=== PATIENT | female | born 1950 | race Asian ===

== ENCOUNTER 2017-08-24 13:51 | Outpatient (CLI) | payer MEDICARE, BC ==
[2017-08-24 15:05] LABS: Hematocrit 36.9 % (36.0-47.0); Mean Platelet Volume 8.4 fL (7.4-10.4); Red Blood Cell (RBC) Count 3.94 mill/uL (4.20-5.40); White Blood Cell (WBC) Count 10.4 thou/uL (4.8-10.8)
[2017-08-24 15:24] LABS: Anion Gap 13 mmol/L (10-20); BUN (Urea Nitrogen) 19 mg/dL (9.8-20.1); Calc. Creatinine Clearance 0 mL/min (70-130); Calcium 9.7 mg/dL (7.8-10.44); Carbon Dioxide 24 mmol/L (23-31); Chloride 102 mmol/L (98-107); Estimated GFR-MDRD 50
== END 2017-08-24 13:52 | disposition home or self-care (01) ==
LOC: LABBT 13:51
PROVIDERS: ATTEND Neurological Surgery
DX: Z01.818 Encounter for other preprocedural examination (principal); M54.16 Radiculopathy, lumbar region
CPT/HCPCS: 80048; 85027; 93005; 93010

== ENCOUNTER 2017-08-31 05:56 | Day surgery (SDC) | payer MEDICARE, BC ==
[2017-08-24 14:02] VITALS: BMI 28.3
[2017-08-31] MEDS ORDERED: CEFAZOLIN/Water 2 GM/20 ML SYRINGE ONE (06:12)
[2017-08-31] MEDS ORDERED: Sodium Chloride 0.9% 10 ML ONE (06:24)
[2017-08-31] MEDS ORDERED: Midazolam HCl 2 mg/2 ml Vial ONE (06:44)
[2017-08-31] MEDS ORDERED: Scopolamine 1.5 mg/72 hour Patch ONE (06:44)
[2017-08-31] MEDS ORDERED: Fentanyl 100 MCG/2 ML VIAL ONE ×3 (07:12→10:14)
[2017-08-31] MEDS ORDERED: Phenylephrine 10 MG/NS 250 ML 250 ML ONE (07:12)
[2017-08-31] MEDS ORDERED: Promethazine HCl 25 MG/ML VIAL ONE (07:12)
[2017-08-31] MEDS ORDERED: Ondansetron HCl/PF 4 MG/2 ML Vial IVP PRN (09:08)
[2017-08-31] MEDS ORDERED: Meperidine HCl/PF 25 MG/ML VIAL SLOW IVP PRN (09:08)
[2017-08-31] MEDS ORDERED: Morphine Sulfate 2 MG/ML SYRINGE SLOW IVP PRN (09:08)
[2017-08-31] MEDS ORDERED: HYDROmorphone 2 MG/ML VIAL SLOW IVP PRN (09:08)
[2017-08-31] MEDS ORDERED: Promethazine HCl 25 MG/ML VIAL SLOW IVP PRN (09:08)
--- NOTE | 2017-08-31 09:25 | OP ---
DATE OF PROCEDURE: 08/31/2017 SURGEON: Dawson Kraus M.D. STAFF NURSE ICU RESOURCE TEAM: Fabiana Cade PROCEDURE: L4-5 laminectomy, posterolateral arthrodesis, pedicle screw instrumentation, demineralize d bone matrix, and local morselized autograft L4-5. PROCEDURE IN DETAIL: The patient was brought into the operating room, intubated. She was rolled in the prone position on gel-filled chest rolls. Incision made exposing L4 and L5 bilaterally and our l evel was confirmed by x-ray. We performed complete L5 and inferior L4 laminectomies and completely d ecompressed the neural elements with particular attention to the left L4-5 lateral recess. After com plete decompression had been secured, we placed pedicle screws at left L4 and left L5 using lateral f luoroscopic guidance and the positioning was confirmed with rotational x-ray. A taylor was secured betw een the screws, connected by nuts which were final tightened. The wound was then extensively irrigat ed, immaculate hemostasis was secured. A combination of demineralized bone matrix and local morseliz ed autograft was laid over the left laminar and posterolateral surfaces for the purpose of arthrodesi s. Vancomycin powder was applied and the wound was closed in anatomic layers.
[2017-08-31] MEDS ORDERED: Cyclobenzaprine 10 MG TAB ONE (10:03)
[2017-08-31] MEDS ORDERED: tiZANidine HCl 4 MG TAB ONE (10:03)
[2017-08-31] MEDS ORDERED: ePHEDrine/0.9% NaCl/PF SYRINGE 50 mg/10 ml ONE (17:18)
[2017-08-31] MEDS ORDERED: PHENYLEPHRINE-NS 100 MCG/ML 10 ML SYRINGE ONE (17:18)
[2017-08-31] MEDS ORDERED: Ondansetron HCl/PF 4 MG/2 ML Vial ONE (17:18)
[2017-08-31] MEDS ORDERED: Glycopyrrolate 0.2 MG/ML 5 ML SYRINGE ONE (17:18)
[2017-08-31] MEDS ORDERED: Dexamethasone 20 MG/5 ML VIAL ONE (17:18)
[2017-08-31] MEDS ORDERED: Lidocaine 1% PF 5 ML VIAL ONE (17:18)
[2017-08-31] MEDS ORDERED: Propofol 200 MG/20 ML VIAL ONE (17:18)
== END 2017-08-31 13:54 | disposition home or self-care (01) ==
LOC: SDC 05:56
PROVIDERS: ATTEND Neurological Surgery
PROC: 0SG107J Fusion of 2 or more Lumbar Vertebral Joints with Autologous Tissue Substitute, Posterior Approach, Anterior Column, Open Approach (ICD-10-PCS; principal; 2017-08-31)
DX: M54.16 Radiculopathy, lumbar region (principal); Z88.5 Allergy status to narcotic agent; Z88.0 Allergy status to penicillin; Z91.041 Radiographic dye allergy status; Z88.8 Allergy status to other drugs, medicaments and biological substances
CPT/HCPCS: 20930; 20936; 22612; 22840; 76001; 82962; 96374; C1713 ×2; C1768; 36416; A4216; J1100; J2001; J2250; J2405; J2550; J2704; J3010; J3370; J3490

== ENCOUNTER 2017-09-14 11:21 | Outpatient (CLI) | payer MEDICARE, BC ==
--- NOTE | 2017-09-14 12:00 | RAD ---
LUMBAR SPINE SERIES TWO VIEWS: History: Follow up after surgery. FINDINGS: There is a severe scoliotic deformity to the spine, convex to the left. There is left unilateral pedi prabha screws at the L4-5 level and grade 1 spondylolisthesis at this level. IMPRESSION: 1. Post-operative changes at L4-5. 2. Severe scoliosis. POS: DARIO
== END 2017-09-14 11:22 | disposition home or self-care (01) ==
LOC: TBSIIMAG 11:21
PROVIDERS: ATTEND Physician Assistant
DX: M54.9 Dorsalgia, unspecified (principal); M41.9 Scoliosis, unspecified; Z98.1 Arthrodesis status
CPT/HCPCS: 72100

== ENCOUNTER 2017-10-25 13:45 | Outpatient (CLI) | payer MEDICARE, BC ==
--- NOTE | 2017-10-25 14:07 | RAD ---
TWO VIEWS LUMBOSACRAL SPINE: Comparison: 09-14-17 History: Status post lumbar surgery. FINDINGS: Two views of the lumbosacral spine shows sclerotic curvature of the spine. The patient is status post posterior fusion of L4 and L5, with left sided pedicle screws. There is stable grade I anterolisthes is of L4 on L5. The other vertebral bodies demonstrate normal height and alignment without fracture o r subluxation. No perihardware lucency is seen. IMPRESSION: Stable post-surgical changes of the lumbar spine as above. POS: AUTUMN
== END 2017-10-25 13:46 | disposition home or self-care (01) ==
LOC: TBSIIMAG 13:45
PROVIDERS: ATTEND Neurological Surgery
DX: M43.16 Spondylolisthesis, lumbar region (principal); Z98.890 Other specified postprocedural states
CPT/HCPCS: 72100

== ENCOUNTER 2018-04-30 10:06 | Outpatient (CLI) | payer MEDICARE, BC ==
--- NOTE | 2018-04-30 12:38 | RAD ---
TWO-THREE VIEW LUMBAR SPINE RADIOGRAPHIC SERIES: Indication: Lumbar radicular pain. Comparison: 10-25-17 FINDINGS: There is a significant degree of levoscoliosis lumbar spine, similar appearing. Redemonstration of po sterior left sided fusion of L4-5. Grade I spondylolisthesis of L4-5 is grossly stable. Degenerative changes of the lumbar spine are similar appearing. IMPRESSION: Stable appearing post-operative lumbar spine. POS: AUTUMN
--- NOTE | 2018-04-30 15:07 | MRI ---
LUMBAR SPINE MRI NONCONTRAST: Indication: Lumbar radicular pain. FINDINGS: There is susceptibility from posterior fusions spanning L4 and L5 on the left with left side pedicles screws. Susceptibility artifact in this region does limit assessment. 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 No evidence of acute compression deformity or marrow edema. There is trace spondylolisthesis at L4-5. L5-S1: There is severe bilateral degenerative facet hypertrophy and disc osteophyte complex with mild to moderate central canal stenosis and crowding of the bilateral traversing S1 nerve roots, more not able on the right. Mild bilateral neural foraminal stenosis is present due to degenerative facet hype rtrophy. L4-5: There is mild central canal stenosis. No high grade right foraminal narrowing. There is mild le ft neural foraminal narrowing. L3-4: Broad based disc osteophyte is present with a superimposed central disc protrusion producing mo derate central canal stenosis and severe narrowing of the left subarticular zone with direct impingem ent upon the traversing left L4 nerve root. There is mild bilateral neural foraminal narrowing. L2-3: Mild effacement of the ventral thecal sac due to disc bulge. No significant foraminal stenosis. L1-2: There is no high grade central canal or neural foraminal stenosis. T12-L1: Right paracentral disc protrusion, mild apex at the ventral thecal sac. The conus medullaris terminates at the L1 level. IMPRESSION: 1. There is multilevel degenerative change throughout the lumbar spine, as delineated above. 2. Post-operative left L4-5 level fusion with associated susceptibility artifact. POS: AUTUMN
== END 2018-04-30 10:07 | disposition home or self-care (01) ==
LOC: TBSIIMAG 10:06
PROVIDERS: ATTEND Neurological Surgery
DX: Z98.890 Other specified postprocedural states (principal); Z98.1 Arthrodesis status
CPT/HCPCS: 72100; 72148